=== PATIENT | female | born 1985 | race Caucasian/White ===

== ENCOUNTER 2016-09-28 23:16 | Emergency (ER) | payer BC, OTHER ==
--- NOTE | ~2016-09-28 | CT4 ---
[facility] A Service of [facility] RADIOLOGY TEXT RESULTS PATIENT: DAVID WOLFF LOCATION: [facility] : 87 UNIT #: [id number] AGE: [address]: Richie Shaw MD SEX: F ORDER DR: [id number] [facility] [address] [place], [place] [address] [id number] MR#: [id number] Acc #: [id number] NAME: DAVID WOLFF. : 1985 SEX: F STUDY DATE/TIME: UNIT: [facility] ROOM: STUDY DESCRIPTION: CT Abd and Pelv Wo Cont Attending Physician: Derrick Shaw M.D. Ordering Physician: Ed Nikolai Hernandes M.D. Primary Care Physician: [facility] MEDICAL IMAGING REPORT This report is preliminary unless electronic signature is present EXAM Abdomen and pelvis CT 09/29/2016 at 0041 INDICATION Nausea and diarrhea with left flank pain that started at 10:00 a.m. yesterday morning. TECHNIQUE Axial noncontrast images were obtained through the abdomen and pelvis. Multiplanar reformats were obtained. This CT exam was performed with one or more of the following radiation dose reduction techniques: automatic exposure control, adjustment of mA and/or kV according to patient size, and iterative reconstruction. COMPARISON 07/30/2015 FINDINGS ABDOMEN: Lung bases are clear. Gallbladder is surgically absent. No biliary obstruction is seen. No renal or ureteral stones. No hydronephrosis. The unenhanced solid organs are normal. Unopacified GI tract is normal. No free fluid or adenopathy is seen. PELVIS: The appendix is normal. The remainder of the unopacified GI tract is normal as well. There are no lower ureteral stones. Bladder is decompressed but grossly normal. Solid pelvic organs are normal. No free fluid identified. IMPRESSION 1. No acute findings in the abdomen or pelvis. 2. No renal or ureteral stones. No hydronephrosis. 3. Normal unopacified GI tract including the appendix. 4. Cholecystectomy. [facility] A Service of [facility] RADIOLOGY TEXT RESULTS PATIENT: DAVID WOLFF [id number] 87 UNIT #: [id number] AGE: [address]: Richie Shaw MD SEX: F ORDER DR: Dictated by... Caleb Gibson Jr., M.D. THIS IS AN ELECTRONICALLY VERIFIED REPORT Caleb Gibson Jr., M.D. at 09/29/2016 5:18 PM JAZ/antonio TD: 09/29/2016 10:18 JOB #: [id number] MEDICAL IMAGING REPORT Page 1 of 1 COPY
[~2016-09-28 23:16] MED LIST: FLAGYL; NO MEDICATIONS; NORCO1 TAB 10/3 DOB; ULTRAM PO; ZITHROMAX PO; ZOFRAN ODT4 MG
[2016-09-29 00:47] LABS: URINE SOURCE CLEAN CATCH
[2016-09-29 00:53] LABS: URINE APPEARANCE CLOUDY; URINE BILIRUBIN NEG (NEG); URINE BLOOD 1+ (NEG); URINE COLOR YELLOW; URINE GLUCOSE NEG (NEG); URINE KETONE NEG (NEG); URINE LEUKOCYTE ESTERASE 1+ (NEG); URINE NITRATE POS (NEG); URINE PH 5.5 (5-8); URINE PROTEIN TRACE (NEG); URINE SPECIFIC GRAVITY 1.025 (1.003-1.035)
[2016-09-29 00:56] LABS: CULTURE INDICATED? YES; URINE BACTERIA AUWI 4+ (NEGATIVE); URINE SQUAMOUS EPITHELIAL CELL OCC /[HPF]
[2016-09-29 00:58] LABS: BASOPHIL% 0.2 % (0-2.5); EOSINOPHIL# 0.1 X10e3 (0-0.7); EOSINOPHIL% 0.3 % (0.0-7.0); HEMATOCRIT 43.2 % (35.0-45.0); HEMOGLOBIN 14.3 gm/dL (12.0-16.0); LYMPHOCYTE# 2.4 X10e3 (1.0-3.5); LYMPHOCYTE% 12.2 % (17.0-45.0); MEAN CELL VOLUME 91.4 FL (83-96); MEAN CORPUSCULAR HEMOGLOBIN 30.3 PG (28-34); MEAN CORPUSCULAR HGB CONC 33.1 g/dL (30-36); MEAN PLATELET VOLUME 8.4 FL (6.5-11.5); MONOCYTE% 10.3 % (3.0-12.0); NEUTROPHIL# 15.1 X10e3 (1.5-7.1); PLATELET COUNT 235 X10e3 (140-420); RED BLOOD COUNT 4.73 X10e (3.90-5.30); RED CELL DISTRIBUTION WIDTH 12.7 % (11.0-15.5); WHITE BLOOD COUNT 19.7 X10e3 (4.0-10.5)
[2016-09-29 01:04] LABS: DIFF IND YES
[2016-09-29 01:15] LABS: BUN/CREATININE RATIO 17.5; CALCIUM SERUM 8.8 mg/dL (8.4-10.2); CREATININE SERUM 0.8 mg/dL (0.6-1.4); GLOM FILT RATE Estimated 99.7 mL/min (>60); POTASSIUM 3.4 mmol/L (3.5-5.1)
[2016-09-29 01:20] LABS: PLATELET ESTIMATE NORMAL (NORMAL)
== END 2016-09-29 03:15 | disposition home or self-care (01) ==
LOC: CED 23:16
PROVIDERS: Emergency Medicine
DX: N10 Acute pyelonephritis (principal); Z90.49 Acquired absence of other specified parts of digestive tract; F17.210 Nicotine dependence, cigarettes, uncomplicated; Z88.0 Allergy status to penicillin; Z88.6 Allergy status to analgesic agent; Z88.5 Allergy status to narcotic agent
CPT/HCPCS: 36415; 74176; 80048; 81003; 84703; 85025; 87086; 87088; 87186; 96361; 96365; 96375; 99284; J1885; J1956